=== PATIENT | female | born 1990 | race Two or more races ===

== ENCOUNTER 2018-06-05 09:20 | Emergency (ER) | payer OTHER ==
[2018-06-05 09:29] VITALS: BP 131/72; PULSE 64; TEMP 98.9; BMI 29.2
[2018-06-05] MEDS ORDERED: IBUPROFEN 600 MG TABLET (FP) PO ONE ×2 (09:51→09:55)
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
== END 2018-06-05 10:12 | disposition home or self-care (01) ==
LOC: JER 09:20
DX: R51 Headache (principal); V53.5XXA Driver of pick-up truck or van injured in collision with car, pick-up truck or van in traffic accident, initial encounter; Y92.488 Other paved roadways as the place of occurrence of the external cause; Y93.89 Activity, other specified; Y99.8 Other external cause status
CPT/HCPCS: 99281-25